=== PATIENT | female | born 1970 | race Caucasian/White ===

== ENCOUNTER 2021-04-13 09:22 | Emergency (ER) | payer OTHER, SELFPAY ==
[~2021-04-13] VITALS: Ht 170.2 cm; Wt 87.5 kg
[2021-04-13 09:25] VITALS: BP_SYST 120
--- NOTE | 2021-04-13 09:25 | NUR ---
BROUGHT BACK TO OUTSIDE ER TENT AND TRIAGED. WILL ASSUME CARE
--- NOTE | 2021-04-13 09:58 | NUR ---
DR FIORE OUT TO SEE PT IN TRIAGE TENT, UNABLE TO LOCATE PT.
--- NOTE | 2021-04-13 10:04 | NUR ---
UNABLE TO LOCATE PT, PT NOT ON GURNEY IN TRIAGE TENT.
== END 2021-04-13 10:08 | disposition left against medical advice (07) ==
LOC: SED 09:22
DX: Z53.21 Procedure and treatment not carried out due to patient leaving prior to being seen by health care provider (principal)